=== PATIENT | female | born 1985 | race Caucasian/White ===

== ENCOUNTER 2017-11-28 17:26 | Emergency (ER) | payer SELFPAY ==
[~2017-11-28] VITALS: Ht 162.6 cm; Wt 60.0 kg
[2017-11-28 17:44] VITALS: BP 143/82
== END 2017-11-28 18:18 | disposition left against medical advice (07) | DRG 951 ==
LOC: ED 17:26 → EDSEX 17:57 → ED 17:57
DX: Z91.19 Patient's noncompliance with other medical treatment and regimen (principal)

== ENCOUNTER 2017-11-28 22:36 | Emergency (ER) | payer SELFPAY | END 2017-11-28 22:38 | disposition left against medical advice (07) | DRG 951 | LOC: ED 22:36 → EDSEX 22:36 → LWOBS 22:38 | DX: Z91.19 Patient's noncompliance with other medical treatment and regimen (principal) ==

== ENCOUNTER 2019-01-10 17:38 | Emergency (ER) | payer SELFPAY ==
[~2019-01-10] VITALS: Ht 162.6 cm; Wt 84.5 kg
[2019-01-10] MEDS ORDERED: FLONASE AL50 MCG/ACT IN (19:17)
[2019-01-10] MEDS ORDERED: BUSPAR5 MG PO (19:18)
[2019-01-10] MEDS ORDERED: BENADRYL 25MG C25 MG PO (19:19)
[2019-01-10] MEDS ORDERED: RISPERIDONE2 MG PO (19:20)
[2019-01-10] MEDS ORDERED: TRILEPTAL300 M1 PO (19:20)
[2019-01-10] MEDS ORDERED: INVEGA SUS234 MG/1.5 IM (19:27)
[2019-01-10 19:34] LABS: IMMATURE GRANULOCYTES 0.4 % (0.0-5.0); MEAN CELL VOLUME 82.9 fL CALC (80.0-100.0); MEAN CORPUSCULAR HGB CONC 36.1 g/L CALC (32.0-36.0); NEUT# 5.41 thou/uL (2.00-7.15); RED BLOOD COUNT 4.34 mill/uL (4.20-5.60); RED CELL DISTRI WIDTH 13.1 % (11.5-15.5)
[2019-01-10 19:55] LABS: ALBUMIN 4.2 g/dL (3.2-5.0); ALKALINE PHOSPHATASE 52 u/l (38-126); ANION GAP 13 (6-22 (CALC)); BILIRUBIN, TOTAL 0.3 mg/dL (0.0-1.4); BUN 12 mg/dL (7-17); BUN/CREATININE RATIO 20 (12-20 (CALC)); CARBON DIOXIDE 24 mmol/l (22-30); CHLORIDE 107 mmol/l (95-108); CREATININE 0.6 mg/dL (0.5-1.0); GFR > 60 ML/MIN (>=60 (CALC)); GFR FOR AFR.AMER. > 60 ML/MIN (>=60 (CALC)); POTASSIUM 3.8 mmol/l (3.5-5.1); SGOT/AST 33 u/l (14-36); SODIUM 140 mmol/l (137-146); TOTAL PROTEIN 7.3 g/dL (6.3-8.2)
[2019-01-10 20:28] LABS: URINE BILIRUBIN - DIPSTICK NEGATIVE (NEGATIVE); URINE BLOOD DIPSTICK NEGATIVE (NEGATIVE); URINE COLOR YELLOW; URINE GLUCOSE - DIPSTICK NEGATIVE (NEGATIVE); URINE KETONE NEGATIVE (NEGATIVE); URINE LEUK ESTERASE SMALL (NEGATIVE); URINE NITRITE - DIPSTICK NEGATIVE (Negative); URINE PH 5.5 (4.5-8.0); URINE PROTEIN - DIPSTICK NEGATIVE (NEG-TRACE); URINE UROBILINOGEN - DIPSTICK 0.2 E.U./dL (0.2)
[2019-01-10 20:29] LABS: BARBITURATES NEGATIVE (NEGATIVE); COCAINE NEGATIVE (NEGATIVE); METHADONE NEGATIVE (NEGATIVE); OXCYCODONE NEGATIVE (NEGATIVE); TETRAHYDROCANNABIONOL NEGATIVE (NEGATIVE); TRICYLIC ANTIDEPRESSANTS NEGATIVE (NEGATIVE)
[2019-01-10] MEDS ORDERED: BACTRIM DS1 TAB PO (20:37)
[2019-01-10 20:40] LABS: URINE BACTERIA RARE hpf; URINE SQUAMOUS EPITHELIAL CELL FEW EPI/hpf (0-FEW)
[2019-01-10 20:58] VITALS: BP 122/64
== END 2019-01-10 20:55 | disposition home or self-care (01) | DRG 880 ==
LOC: ED 17:38
PROVIDERS: Emergency Medicine
DX: F41.9 Anxiety disorder, unspecified (principal); N39.0 Urinary tract infection, site not specified; F17.210 Nicotine dependence, cigarettes, uncomplicated
CPT/HCPCS: J2060